=== PATIENT | male | born 1980 | race Caucasian/White ===

== ENCOUNTER 2016-11-27 18:55 | Emergency (ER) | payer BC, OTHER ==
[2016-11-27 19:11] VITALS: BP 138/95; PULSE 80; RESP 20; TEMP 98.2; O2SAT 96
--- NOTE | 2016-11-27 19:51 | EDPHY ---
H & P Stated Complaint: LEFT SHOULDER PAIN OFF/ON, WORSE SINCE YEST AFTER CLIMBING AND STRETCHING HPI/ROS: Chief complaint: Left shoulder injury History of present illness: This is a 36-year-old male who presents to the emergency department for left shoulder injury. Patient reports he has had pain in the shoulder for approximately a month. The initial injury he feels was when he was moving log that is house and pulled shoulder. It has been sore since then. He feels he is worsened by rock climbing. States it is now difficult to move the shoulder. He denies other associated signs or symptoms including no direct trauma, no abnormal coolness or paresthesias in the arm. No fever abnormal warmness to the shoulder. - Personal History Current Tetanus/Diphtheria Vaccine: Unsure - Medical/Surgical History Hx Asthma: Yes Hx Chronic Respiratory Disease: No Hx Diabetes: No Hx Cardiac Disease: No Hx Renal Disease: No Hx Cirrhosis: No Hx Alcoholism: No Hx HIV/AIDS: No Hx Splenectomy or Spleen Trauma: No Other PMH: TONSILS, HERNIA - Social History Smoking Status: Never smoked - Physical Exam Exam: General: Alert, nontoxic Skin: No open wounds to the left upper extremity. No erythema or edema noted. Musculoskeletal: Mild diffuse tenderness to the left shoulder. He has decreased range of motion in all adams and decreased strength in all adams. He has good passive range of motion without discomfort. The rest the left upper extremities unremarkable. Vascular: Radial pulses 2+. Neurologic: Sensation intact throughout the left upper extremity. Constitutional: Initial Vital Signs Temperature (C) 36.8 C 11/27/16 19:08 Heart Rate 80 11/27/16 19:08 Respiratory Rate 20 11/27/16 19:08 Blood Pressure 138/95 H 11/27/16 19:08 O2 Sat (%) 96 11/27/16 19:08 O2 Delivery Mode Room Air Allergies/Adverse Reactions: No Known Allergies Allergy (Unverified 11/27/16 19:08) Home Medications: Medication Instructions Recorded Hydrocodone/APAP 5/325 [Weston 1 tab PO Q6H #6 tab 11/27/16 5/325 (*)] Medical Decision Making - Diagnostics Imaging Results: Imaging Impressions Shoulder X-Ray 11/27/16 19:22 Impression: Normal left shoulder series. Imaging: I viewed and interpreted images myself ED Course/Re-evaluation: Patient seen under the supervision of my primary supervising physician Dr. Kristin Gaitan. Patient presents to the emergency department for left shoulder pain. Patient has had pain for the last month. His left upper extremity is neurovascularly intact. X-rays negative. Likely a sprain or strain or rotator cuff injury. My suspicion for serious pathology such as septic joint is low given lack of fever and good passive range of motion. Patient is discharged home in a sling. Home care is discussed. He is asked to follow up with Orthopedics for recheck and referral information is given. Return precautions are given. Patient voiced understanding and agreement with plan. Differential Diagnosis: Included but not limited to contusion, sprain or strain, rotator cuff injury, fracture, unlikely dislocation or septic joint - Data Points Medications Given: Discontinued Medications Hydrocodone Bitart/Acetaminophen (Weston 5/325) 1 tab PO EDNOW ONE Stop: 11/27/16 20:01 Last Admin: 11/27/16 20:05 Dose: 1 tab Departure - Departure Disposition: Home, Routine, Self-Care Clinical Impression: Left shoulder pain Qualifiers: Chronicity: acute Qualified Code(s): M25.512 - Pain in left shoulder Condition: Good Instructions: Shoulder Pain (ED) Additional Instructions: Follow-up with Orthopedic for continued evaluation and care If symptoms worsen or new symptoms develop return to the emergency room for recheck Referrals: NONE *PRIMARY CARE P,. [Unknown] - As per Instructions Alvarez Otoole MD [Medical Doctor] - As per Instructions Prescriptions: Hydrocodone/APAP 5/325 [Weston 5/325 (*)] 1 tab PO Q6H #6 tab
[2016-11-27] MEDS ORDERED: HYDROCODONE/APAP 5/325 TAB PO ONE (20:00)
[2016-11-27] MEDS ORDERED: HYDROCODONE/APAP 5/325 TAB ONE (20:01)
== END 2016-11-27 20:10 | disposition home or self-care (01) ==
DX: S49.92XA Unspecified injury of left shoulder and upper arm, initial encounter (principal); J45.909 Unspecified asthma, uncomplicated; X58.XXXA Exposure to other specified factors, initial encounter; Y93.31 Activity, mountain climbing, rock climbing and wall climbing

== ENCOUNTER → 2016-11-30 | Outpatient (CLI) | payer OTHER | LOC: FIMAGING 16:07 | PROVIDERS: ATTEND Physician Assistant | DX: S43.432A Superior glenoid labrum lesion of left shoulder, initial encounter (principal); S46.012A Strain of muscle(s) and tendon(s) of the rotator cuff of left shoulder, initial encounter; S43.005S Unspecified dislocation of left shoulder joint, sequela ==

== ENCOUNTER → 2017-09-03 | Outpatient (CLI) | payer OTHER | LOC: BMCIMAGING 14:53 | PROVIDERS: ATTEND Family Medicine | DX: S99.921A Unspecified injury of right foot, initial encounter (principal) ==